=== PATIENT | female | born 1985 | race Caucasian/White ===

== ENCOUNTER 2019-03-21 07:32 | Emergency (ER) | payer OTHER ==
[~2019-03-21] VITALS: Ht 172.7 cm; Wt 112.5 kg
[2019-03-21] MEDS ORDERED: BACL20 PO (08:02)
[2019-03-21] MEDS ORDERED: GABA400 PO (08:03)
[2019-03-21] MEDS ORDERED: IBUP800 PO (08:03)
[2019-03-21] MEDS ORDERED: OMEPRAZOLE20 MG PO (08:03)
[2019-03-21] MEDS ORDERED: DULO60 PO (08:03)
[2019-03-21] MEDS ORDERED: TRAZ100 PO (08:04)
[2019-03-21 08:19] LABS: BASOPHILS ABSOLUTE AUTO 0.05 K/mm3 (0.00-0.23); BASOPHILS PERCENT AUTO 1 % (0-2); EOSINOPHILS ABSOLUTE AUTO 0.17 K/mm3 (0.00-0.68); EOSINOPHILS PERCENT AUTO 2 % (0-6); Hematocrit 41.3 % (33.0-51.0); Hemoglobin 13.2 g/dL (11.5-16.0); IMMATURE GRAN ABSOLUTE AUTO 0.03 K/mm3 (0.00-0.10); IMMATURE GRAN PERCENT AUTO 0 % (0-1); LYMPHOCYTES ABSOLUTE AUTO 2.98 K/mm3 (0.84-5.20); LYMPHOCYTES PERCENT AUTO 32 % (21-46); MONOCYTES ABSOLUTE AUTO 0.78 K/mm3 (0.16-1.47); MONOCYTES PERCENT AUTO 8 % (4-13); Mean Corpuscular HGB 26.8 pg (26.0-34.0); Mean Corpuscular Volume 84 fL (80-100); Mean Platelet Volume 9.7 fL (9.1-12.4); NEUTROPHILS ABSOLUTE AUTO 5.32 K/mm3 (1.96-9.15); NEUTROPHILS PERCENT AUTO 57 % (41-73); Platelet Count 354 K/mm3 (150-400); RDW Coefficient Variation 14.4 % (11.7-14.2); RDW Standard Deviation 43.8 fL (35.1-46.3); Red Blood Cell Count 4.93 M/mm3 (3.80-5.20); White Blood Cell Count 9.33 K/mm3 (4.00-11.30)
[2019-03-21 08:30] LABS: C-REACTIVE PROTEIN, EXT RANGE <0.290 mg/dL (0.000-0.300)
[2019-03-21 08:33] LABS: Alanine Aminotransfer (ALT/SGP 22 U/L (12-78); Albumin, Blood 3.5 g/dL (3.4-5.0); Albumin/Globulin Ratio 0.9 (0.8-1.8); Alk Phos 74 U/L (50-136); Anion Gap 4 mmol/L (6-16); Aspartate Aminotrans (AST/SGOT 16 U/L (12-37); Bilirubin, Total 0.5 mg/dL (0.1-1.0); Blood Urea Nitrogen 11 mg/dL (8-24); Bun/Creatinine Ratio 13.4 (12.0-20.0); CO2, Blood 29 mmol/L (21-32); Chloride, Blood 106 mmol/L (98-108); Creatinine, Blood 0.82 mg/dL (0.40-1.00); Globulin, Blood 4.1 g/dL (2.2-4.0); Glomerular Filtration Rate >60 (60-); Glucose, Blood 88 mg/dL (70-99); Sodium, Blood 139 mmol/L (136-145); Total Protein, Blood 7.6 g/dL (6.4-8.2); Troponin I <0.015 ng/mL (0.000-0.040)
[2019-03-21] MEDS ORDERED: NAPR500 PO (09:53)
[2019-03-21] MEDS ORDERED: Norco 5-325 Ta1 EACH PO (09:53)
== END 2019-03-21 10:03 | disposition home or self-care (01) ==
LOC: ER 07:32
PROVIDERS: Internal Medicine
DX: R07.2 Precordial pain (principal); F17.210 Nicotine dependence, cigarettes, uncomplicated; Z79.899 Other long term (current) drug therapy
CPT/HCPCS: 71046; 80053; 81025; 84484; 85025; 86140; 93005; 93010; 96374; 99284-25; J1885

== ENCOUNTER 2019-04-10 06:45 | Emergency (ER) | payer OTHER ==
[~2019-04-10] VITALS: Ht 172.7 cm; Wt 65.8 kg
[~2019-04-10 06:45] MED LIST: BACL20 PO; DULO60 PO; GABA400 PO; IBUP800 PO; NAPR500 PO; Norco 5-325 Ta1 EACH PO; OMEPRAZOLE20 MG PO; TRAZ100 PO
[2019-04-10 07:59] LABS: BASOPHILS ABSOLUTE AUTO 0.06 K/mm3 (0.00-0.23); BASOPHILS PERCENT AUTO 1 % (0-2); EOSINOPHILS ABSOLUTE AUTO 0.24 K/mm3 (0.00-0.68); EOSINOPHILS PERCENT AUTO 3 % (0-6); Hemoglobin 13.1 g/dL (11.5-16.0); IMMATURE GRAN ABSOLUTE AUTO 0.01 K/mm3 (0.00-0.10); IMMATURE GRAN PERCENT AUTO 0 % (0-1); LYMPHOCYTES ABSOLUTE AUTO 3.08 K/mm3 (0.84-5.20); LYMPHOCYTES PERCENT AUTO 37 % (21-46); MONOCYTES ABSOLUTE AUTO 0.92 K/mm3 (0.16-1.47); MONOCYTES PERCENT AUTO 11 % (4-13); Mean Corpuscular HGB 25.9 pg (26.0-34.0); Mean Corpuscular Volume 81 fL (80-100); Mean Platelet Volume 9.8 fL (9.1-12.4); NEUTROPHILS ABSOLUTE AUTO 4.05 K/mm3 (1.96-9.15); NEUTROPHILS PERCENT AUTO 49 % (41-73); Platelet Count 376 K/mm3 (150-400); RDW Coefficient Variation 14.8 % (11.7-14.2); RDW Standard Deviation 43.5 fL (35.1-46.3); Red Blood Cell Count 5.05 M/mm3 (3.80-5.20); White Blood Cell Count 8.36 K/mm3 (4.00-11.30)
[2019-04-10] MEDS ORDERED: Depo-Testo100 MG/1 M IM (08:00)
[2019-04-10 08:23] LABS: Alanine Aminotransfer (ALT/SGP 34 U/L (12-78); Albumin, Blood 3.7 g/dL (3.4-5.0); Albumin/Globulin Ratio 0.9 (0.8-1.8); Alk Phos 82 U/L (50-136); Anion Gap 5 mmol/L (6-16); Aspartate Aminotrans (AST/SGOT 23 U/L (12-37); Bilirubin, Total 0.4 mg/dL (0.1-1.0); Blood Urea Nitrogen 8 mg/dL (8-24); Bun/Creatinine Ratio 10.4 (12.0-20.0); CO2, Blood 25 mmol/L (21-32); Calcium, Blood 8.9 mg/dL (8.5-10.1); Chloride, Blood 108 mmol/L (98-108); Creatinine, Blood 0.77 mg/dL (0.40-1.00); Globulin, Blood 3.9 g/dL (2.2-4.0); Glomerular Filtration Rate >60 (60-); Glucose, Blood 88 mg/dL (70-99); Potassium, Blood 3.6 mmol/L (3.5-5.5); Sodium, Blood 138 mmol/L (136-145); Total Protein, Blood 7.6 g/dL (6.4-8.2); Troponin I <0.015 ng/mL (0.000-0.040)
[2019-04-10] MEDS ORDERED: Prednisone20 MG PO (08:47)
== END 2019-04-10 09:30 | disposition home or self-care (01) ==
LOC: ER 06:45
PROVIDERS: Emergency Medicine
DX: R07.89 Other chest pain (principal); F17.200 Nicotine dependence, unspecified, uncomplicated; Z88.8 Allergy status to other drugs, medicaments and biological substances; Z79.899 Other long term (current) drug therapy; Z79.1 Long term (current) use of non-steroidal anti-inflammatories (NSAID)
CPT/HCPCS: 36415; 80053; 84484; 85025; 85379; 85651; 86140; 93005; 93010; 96374; 96375; 99283-25; J1100; J1885

== ENCOUNTER 2019-06-18 07:56 | Emergency (ER) | payer OTHER ==
[~2019-06-18] VITALS: Ht 172.7 cm; Wt 113.4 kg
[~2019-06-18 07:56] MED LIST changes: +Depo-Testo100 MG/1 M IM; +Prednisone20 MG PO
[2019-06-18 08:30] LABS: Source, Urine Clean Catch
[2019-06-18 08:32] LABS: Bilirubin, Urine Neg (Neg); Blood, Urine 2+ (Neg); Glucose Qualitative, Urine Neg (Neg); Ketones, Urine Neg (Neg); Leukocyte Esterase, Urine 3+ (Neg); Nitrite, Urine Neg (Neg); Protein, Urine Neg (Neg); Urobilinogen, Urine NORM (Normal); pH, Urine 6.5 (5.0-8.0)
[2019-06-18 08:38] LABS: Appearance, Urine Hazy (Clear); Color, Urine Yellow (P-Yellow)
[2019-06-18 08:43] LABS: Bacteria Rare /hpf; Red Blood Cells, Urine 0-2 /hpf (0-2); Squamous Epithelial Cells Few /hpf (Few); White Blood Cells, Urine TNTC /hpf (0-5)
[2019-06-18] MEDS ORDERED: Flonase 0.05% N16 GM (09:01)
[2019-06-18] MEDS ORDERED: CEPH500 PO (09:01)
[2019-06-18] MEDS ORDERED: BENZ100A PO (09:01)
[2019-06-28] MEDS ORDERED: Macrobid 100 M100 MG PO (16:43)
[2019-08-16] MEDS ORDERED: TESTOSTERO30 MG/1.5 (06:44)
== END 2019-06-18 09:11 | disposition home or self-care (01) ==
LOC: ER 07:56
PROVIDERS: Emergency Medicine
DX: J06.9 Acute upper respiratory infection, unspecified (principal); N39.0 Urinary tract infection, site not specified; J45.909 Unspecified asthma, uncomplicated; F17.200 Nicotine dependence, unspecified, uncomplicated; Z88.8 Allergy status to other drugs, medicaments and biological substances; Z79.899 Other long term (current) drug therapy
CPT/HCPCS: 81001; 87077; 87086; 87186; 99283

== ENCOUNTER 2019-06-20 03:15 | Emergency (ER) | payer OTHER ==
[~2019-06-20] VITALS: Ht 172.7 cm; Wt 104.3 kg
[~2019-06-20 03:15] MED LIST changes: +BENZ100A PO; +CEPH500 PO; +Flonase 0.05% N16 GM
[2019-06-28] MEDS ORDERED: Macrobid 100 M100 MG PO (16:43)
[2019-08-16] MEDS ORDERED: TESTOSTERO30 MG/1.5 (06:44)
== END 2019-06-20 03:44 | disposition home or self-care (01) ==
LOC: ER 03:15
DX: J06.9 Acute upper respiratory infection, unspecified (principal); J45.909 Unspecified asthma, uncomplicated; F17.210 Nicotine dependence, cigarettes, uncomplicated
CPT/HCPCS: 99283

== ENCOUNTER 2019-07-16 07:17 | Emergency (ER) | payer OTHER ==
[~2019-07-16] VITALS: Ht 167.6 cm; Wt 77.1 kg
[~2019-07-16 07:17] MED LIST changes: +Macrobid 100 M100 MG PO
[2019-07-16 09:11] LABS: Influenza A Negative (NEGATIVE); Influenza B Negative (NEGATIVE)
[2019-08-16] MEDS ORDERED: TESTOSTERO30 MG/1.5 (06:44)
== END 2019-07-16 09:51 | disposition home or self-care (01) ==
LOC: ER 07:17
PROVIDERS: Physician Assistant
DX: J06.9 Acute upper respiratory infection, unspecified (principal); J45.909 Unspecified asthma, uncomplicated; M54.9 Dorsalgia, unspecified; F17.210 Nicotine dependence, cigarettes, uncomplicated; G89.29 Other chronic pain; Z88.8 Allergy status to other drugs, medicaments and biological substances
CPT/HCPCS: 71046; 87804; 99283-25

== ENCOUNTER → 2019-09-23 | Outpatient (CLI) | payer OTHER ==
[~2019-09-23] MED LIST changes: +TESTOSTERO30 MG/1.5
== END | disposition home or self-care (01) ==
LOC: LAB SHORT 14:53 → LAB 14:53
DX: N39.0 Urinary tract infection, site not specified (principal)
CPT/HCPCS: 87086

== ENCOUNTER 2019-09-29 10:07 | Emergency (ER) | payer OTHER ==
[~2019-09-29] VITALS: Ht 172.7 cm; Wt 45.0 kg
[2019-09-29] MEDS ORDERED: Amoxicillin875 MG PO (11:08)
== END 2019-09-29 11:12 | disposition home or self-care (01) ==
LOC: ER 10:07
DX: J02.0 Streptococcal pharyngitis (principal); J45.909 Unspecified asthma, uncomplicated; F17.210 Nicotine dependence, cigarettes, uncomplicated
CPT/HCPCS: 87430; 99283